=== PATIENT | female | born 1995 | race Asian ===

== ENCOUNTER 2021-04-22 17:42 | Emergency (ER) | payer BC, OTHER ==
[2021-04-22 18:31] VITALS: BP 121/84; PULSE 70; TEMP 97.7; BMI 27.4
[2021-04-22] MEDS ORDERED: RABIES IMMUNE GLOBULIN 300 UNITS/1 ML VIAL IM ONE (20:06)
[2021-04-22] MEDS ORDERED: RABIES VACCINE (PCEC)/PF 2.5 UNIT/VIAL IM ONE ×2 (20:06→21:41)
[2021-04-22] MEDS ORDERED: AMOX TR/POT CLAV 875MG/125MG TABLETS (FP) PO ONE (20:51)
[2021-04-22] MEDS ORDERED: AMOX TR/POT CLAV 875MG/125MG TABLETS (FP) ONE (21:40)
== END 2021-04-22 22:10 | disposition home or self-care (01) ==
LOC: JERFT 17:42
PROC: 3E023GC Introduction of Other Therapeutic Substance into Muscle, Percutaneous Approach (ICD-10-PCS; principal; 2021-04-22)
DX: S61.451A Open bite of right hand, initial encounter (principal); W55.01XA Bitten by cat, initial encounter
CPT/HCPCS: 90375; 90675; 99283-25

== ENCOUNTER 2021-04-25 09:27 | Emergency (ER) | payer BC, OTHER ==
[2021-04-25 09:33] VITALS: BP 94/66; PULSE 88; TEMP 98.7; BMI 27.4
[2021-04-25] MEDS ORDERED: RABIES VACCINE (PCEC)/PF 2.5 UNIT/VIAL IM ONE ×2 (09:39→09:57)
== END 2021-04-25 10:07 | disposition home or self-care (01) ==
LOC: JERFT 09:27
PROC: 3E0234Z Introduction of Serum, Toxoid and Vaccine into Muscle, Percutaneous Approach (ICD-10-PCS; principal; 2021-04-25)
DX: Z29.14 Encounter for prophylactic rabies immune globulin (principal)
CPT/HCPCS: 90675; 99284-25

== ENCOUNTER 2021-04-29 10:06 | Emergency (ER) | payer BC, OTHER ==
[2021-04-29 10:10] VITALS: BP 108/72; PULSE 80; TEMP 98; BMI 27.4
[2021-04-29] MEDS ORDERED: RABIES VACCINE (PCEC)/PF 2.5 UNIT/VIAL IM ONE ×2 (11:26→12:09)
== END 2021-04-29 12:28 | disposition home or self-care (01) ==
LOC: JERFT 10:06
PROC: 3E023GC Introduction of Other Therapeutic Substance into Muscle, Percutaneous Approach (ICD-10-PCS; principal; 2021-04-29)
DX: Z20.3 Contact with and (suspected) exposure to rabies (principal)
CPT/HCPCS: 90675; 99283-25

== ENCOUNTER 2021-05-06 10:39 | Emergency (ER) | payer BC, OTHER ==
[2021-05-06 10:55] VITALS: BP 103/70; PULSE 100; TEMP 98; BMI 27.4
[2021-05-06] MEDS ORDERED: RABIES VACCINE (PCEC)/PF 2.5 UNIT/VIAL IM ONE ×2 (11:14→11:26)
== END 2021-05-06 12:24 | disposition home or self-care (01) ==
LOC: JER 10:39 → JERFT 10:39
PROC: 3E023GC Introduction of Other Therapeutic Substance into Muscle, Percutaneous Approach (ICD-10-PCS; principal; 2021-05-06)
DX: Z20.3 Contact with and (suspected) exposure to rabies (principal); Z23 Encounter for immunization
CPT/HCPCS: 90675; 99283-25